=== PATIENT | male | born 1940 | race African-American/Black ===

== ENCOUNTER 2017-06-22 10:56 | Inpatient (IN) | payer MEDICARE, MEDICAID ==
--- NOTE | 2017-06-22 12:11 | ULT ---
LEFT LOWER EXTREMITY VENOUS ULTRASOUND: COMPARISON: None. HISTORY: Left lower extremity pain for 1 week. TECHNIQUE: Multiplanar, christian scale, and color Doppler images were obtained in a left lower extremity venous ultr asound. Spectral analysis of the Doppler waveforms was performed. FINDINGS: There is visible thrombus extending from the proximal superficial femoral vein down to the posterior tibial vein. There is minimal flow and no compression of the vessels. The common femoral vein shows no evidence of thrombus and shows normal flow. IMPRESSION: Extensive deep vein thrombosis in the left leg as above. POS: MAX
[2017-06-22] MEDS ORDERED: Enoxaparin Sodium 40 MG/0.4 ML SYRINGE ONE (12:18)
[2017-06-22] MEDS ORDERED: Enoxaparin Sodium 60 MG/0.6 ML SYRINGE ONE (12:19)
[2017-06-22 12:20] LABS: #Eosinphils 0.4 thou/uL (0.0-0.7); #Lymphocytes 2.3 thou/uL (1.20-3.40); #Monocytes 0.9 thou/uL (0.11-0.59); #Neutrophils 3.1 thou/uL (1.40-6.50); %Basophils 0.4 % (0.0-1.0); %Eosinophils 5.4 % (0.0-10.0); %Lymphocytes 34.9 % (21.0-51.0); %Monocytes 13.5 % (0.0-10.0); %Neutrophils 45.8 % (42.0-75.0); Hemoglobin 12.7 g/dL (14.0-18.0); Mean Corpuscular HGB CONC 31.3 g/dL (32.0-36.0); Mean Corpuscular Hemoglobin 26.8 pg (27.0-31.0); Mean Corpuscular Volume 85.8 fl (80.0-94.0); Mean Platelet Volume 7.5 fL (7.4-10.4); Platelet Count 204 thou/uL (130-400); RBC Distribution Width 13.1 % (11.5-14.5); Red Blood Cell (RBC) Count 4.74 mill/uL (4.70-6.10); White Blood Cell (WBC) Count 6.7 thou/uL (4.8-10.8)
[2017-06-22 12:44] LABS: ALT (SGPT) 9 U/L (8-55); AST (SGOT) 12 U/L (5-34); Albumin 3.4 g/dL (3.4-4.8); Alkaline Phosphatase 80 U/L (40-150); Anion Gap 10 mmol/L (10-20); BUN (Urea Nitrogen) 23 mg/dL (8.4-25.7); Bilirubin, Total 0.6 mg/dL (0.2-1.2); Calc. Creatinine Clearance 0 mL/min (70-130); Carbon Dioxide 27 mmol/L (23-31); Chloride 106 mmol/L (98-107); Estimated GFR-MDRD 66; Globulin 3.5 g/dL (2.4-3.5); Glucose 90 mg/dL (83-110); Potassium 3.6 mmol/L (3.5-5.1); Protein, Total 6.9 g/dL (5.8-8.1); Sodium 139 mmol/L (136-145)
[2017-06-22 12:46] LABS: CKMB 0.6 ng/mL (0-6.6); Troponin I 0.015 ng/mL (< 0.028)
--- NOTE | 2017-06-22 13:27 | CT ---
CT ARTERIOGRAM CHEST WITH IV CONTRAST AND 3D MIP IMAGING: HISTORY: Chest pain. Dyspnea. FINDINGS: Scattered small cylindrical filling defects are present within segmental and subsegmental arteries of each lobe. Contrast has not yet reached the aorta. Mild atelectasis is present at each lung base. IMPRESSION: Widely scattered small pulmonary emboli. Findings were called to Dr. Mccoy in the emergency department at 1321 hours. CODE CR POS: FRANCESCO
[2017-06-22 14:12] LABS: INR-International Normal Ratio 1.2; PTT 38.6 SEC (22.9-36.1); Prothrombin Time 15.7 SEC (12.0-14.7)
[2017-06-22 14:34] LABS: D-Dimer Test Greater than 20.00 *mcg/mL (0.27-0.43)
--- NOTE | 2017-06-22 15:28 | HP ---
PRIMARY CARE PHYSICIAN: Erin Morse M.D. REASON FOR ADMISSION: Deep vein thrombosis and pulmonary embolism. HISTORY OF PRESENT ILLNESS: A 76-year-old male with a history of hypertension as well as remote history of colon cancer, who presented to emergency room with complaint of left lower extremity calf tenderness, which was started on Friday, which was getting worse with walking. His intensity of pain is about 5/10 and pain was getting better when he was resting. He denied any chest pain, palpitation, dizziness, but he was feeling mild shortness of breath on exertion. He denies any syncope. He denies any hemoptysis. He denies any immobilization or trauma. He is not taking any medication which can cause hypercoagulable condition. He never had blood clot problem in the past. He denies any family history of blood clot as well. He denies any smoking. With this complaint, he presented to emergency room. In the emergency room, routine blood test showed D-dimer was significantly evaluated and that is why ultrasound was done, which was positive for deep vein thrombosis in left leg. CT angio was also positive for bilateral pulmonary embolism. In the emergency room, the patient has received Lovenox 1 mg/kg and IV fluid, and we are admitting this patient for further treatment. The patient denies any hematochezia, melena, UTI symptoms. He denies any headache. He denies any focal neurological symptoms. ALLERGIES: No known drug allergies. CURRENT HOME MEDICATIONS: The patient is taking Inderal 10 mg 3 times daily. REVIEW OF SYSTEMS: Please see my HPI for pertinent positives and negatives. All other review of systems reviewed and negative except as mentioned in the HPI : Constitutional: Weight loss or gain, ability to conduct usual activities. Skin: Rash, itching. Eyes: Double vision, pain. ENT/Mouth: Nose bleeding, neck stiffness, pain, tenderness. Cardiovascular: Palpitations, dyspnea on exertion, orthopnea. Respiratory: Shortness of breath, wheezing, cough, hemoptysis, fever or night sweats. Gastrointestinal: Poor appetite, abdominal pain, heartburn, nausea, vomiting, constipation, or diarrhea. Genitourinary: Urgency, frequency, dysuria, nocturia. Musculoskeletal: Pain, swelling. Neurologic/Psychiatric: Anxiety, depression. Allergy/Immunologic: Skin rash, bleeding tendency. PAST MEDICAL HISTORY: Hypertension, history of colon cancer treated with surgery. PAST SURGICAL HISTORY: Colon cancer surgery, right knee surgery. PAST PSYCHIATRIC HISTORY: Reviewed and negative. SOCIAL HISTORY: The patient lives at home by himself. No history of tobacco, alcohol or illicit drug abuse. He is retired. FAMILY HISTORY: No family history of blood clot disorder. No family history of coronary artery disease, stroke or cancer. EMERGENCY ROOM COURSE: The patient has received Lovenox 1 mg per kg as well as IV fluid. PHYSICAL EXAMINATION: VITAL SIGNS: On arrival, blood pressure 158/97, pulse 96, respiratory rate 18, temperature 98.4, saturation 98% on room air, weight 63.9 kilograms. GENERAL: The patient is currently alert, awake, no obvious acute distress. HEAD: Normocephalic, atraumatic. EYES: Pupils round, reactive to light. Extraocular muscles intact. ENT: Oropharynx within normal limits. Moist mucous membranes. No oral lesions. No pharyngeal erythema. No exudate. NECK: Supple, no JVD, no thyromegaly, no carotid bruit, no jugular venous distention. LUNGS: Clear to auscultation without any rhonchi or rales. CARDIAC: S1, S2 regular without any murmur. ABDOMEN: Soft and benign. Bowel sounds present. No organomegaly. No mass. No suprapubic tenderness. No peritoneal sign. No distention. BACK: Unremarkable. No CVA tenderness. EXTREMITIES: Upper extremity passive movement of all joints are normal. Lower extremities: Left calf tenderness. Otherwise, no pitting edema on both lower extremities. Good distal pulsation. SKIN: No skin rash. HEMATOLOGIC: No lymphadenopathy. PSYCHIATRIC: Normal affect. NEUROLOGIC: Nonfocal examination. The patient moves all 4 limbs. Plantar bilateral flexor. PSYCHIATRIC: Normal affect. SIGNIFICANT LABORATORY DATA: EKG showing sinus bradycardia with rate 48. Ultrasound of the lower extremity is positive for thrombus extending from the proximal superficial femoral vein down to the posterior tibial vein. CT angio positive for bilateral widely scattered small pulmonary emboli, mild atelectasis present at each of the lung base. CBC: WBC 6.7, hemoglobin 12.7, platelets 204. INR 1.2. D-dimer greater than 20. BMP: Sodium 139, potassium 3.6, chloride 106, carbon dioxide 27, anion gap 10, BUN 23, creatinine 1.28, glucose 90, calcium 9.0. LFT: AST 12, ALT 9, alkaline phosphatase 80, albumin 3.4. Homocystine 9.33. ASSESSMENT AND PLAN: 1. Extensive left lower extremity deep vein thrombosis. This patient has positive deep vein thrombosis from the proximal superficial femoral vein down to posterior tibial vein. The patient is also having pulmonary embolism. This patient will be treated with Lovenox 1 mg/kg subcu twice daily. I discussed with the patient about anticoagulation therapy about warfarin versus newer anticoagulant therapy. This patient will benefit from the OR anticoagulant therapy and he has agreed to continue upon discharge. We will control his pain with the pain medication as needed basis. 2. Bilateral pulmonary embolism. Currently, the patient is hemodynamically stable. His oxygen saturation is normal, most likely related with his deep vein thromboses, etiology uncertain at this point. We are going to send hypercoagulable workup. The patient will be treated with Lovenox 1 mg/kg and upon discharge, we will consider newer anticoagulant therapy Eliquis versus Xarelto. We will closely monitor for any hemodynamic compromise on telemetry floor. We will obtain echocardiography to assess ejection fraction and other structural abnormality. We will also continue O2. Rule out acute coronary syndrome with serial cardiac enzymes. 3. Hypertension. At this point, we will start a new antihypertensive medication with lisinopril 5 mg p.o. b.i.d. The patient has bradycardia and that is why we will hold on Inderal therapy for now. 4. History of colon cancer treated with surgery. Currently, the patient is in remission. The patient will need age appropriate cancer screening after discharge as well to rule out any occult etiology of deep venous thrombosis and pulmonary embolism. 5. Deep venous thrombosis prophylaxis. This patient is already on full dose of Lovenox therapy. 6. Gastrointestinal prophylaxis. Pepcid 20 mg p.o. b.i.d. 7. Code status: The patient is FULL CODE. The patient does not have any surrogate decision maker. 8. Sinus bradycardia: likely due to Inderal, will hold for now and change to lisinopril for hypertension. Disposition and plan based on clinical course. We are expecting patient's stay in the hospital more than 2 midnights. Plan of care discussed with the patient in detail. MTDD
[2017-06-22 15:50] LABS: Troponin I 0.013 ng/mL (< 0.028)
[2017-06-22] MEDS ORDERED: ISOVUE-370 76%-LOCM 1 ML ONE (17:01)
[2017-06-22] MEDS ORDERED: HYDROcodone/Acetaminophen 5/325 mg Tablet PO PRN ×3 (18:35→18:38)
[2017-06-22] MEDS ORDERED: Sodium Chloride 0.9% 1,000 ML IV SCH (18:35)
[2017-06-22] MEDS ORDERED: Ondansetron ODT 4 MG TAB SL PRN (18:35)
[2017-06-22] MEDS ORDERED: Acetaminophen 325 MG TAB PO PRN ×2 (18:35→18:38)
[2017-06-22] MEDS ORDERED: Ondansetron HCl/PF 4 MG/2 ML Vial IVP PRN ×2 (18:35→18:38)
[2017-06-22] MEDS ORDERED: Diabetic Tussin 200 MG/10 ML UDCUP PO PRN (18:38)
[2017-06-22] MEDS ORDERED: hydrALAZINE 20 MG/ML VIAL SLOW IVP PRN (18:38)
[2017-06-22] MEDS ORDERED: Zolpidem Tartrate 5 MG TAB PO PRN (18:38)
[2017-06-22] MEDS ORDERED: Eucerin (Mineral Oil/Petrolatum,White) 30 gm Jar TOP PRN (18:38)
[2017-06-22] MEDS ORDERED: Sodium Chloride 0.65% Nasal 44 ML BOT EA NARE PRN (18:38)
[2017-06-22] MEDS ORDERED: Ondansetron ODT 4 MG TAB PO PRN (18:38)
[2017-06-22] MEDS ORDERED: Senokot 8.6 MG TAB PO PRN (18:38)
[2017-06-22] MEDS ORDERED: Artificial Tear Sol 15 ML BOT EA EYE PRN (18:38)
[2017-06-22] MEDS ORDERED: Loperamide HCl 2 MG CAP PO PRN (18:38)
[2017-06-22] MEDS ORDERED: Milk Of Magnesia 30 ML UDCUP PO PRN (18:38)
[2017-06-22] MEDS ORDERED: Mag-Al 1200 mg/1200 mg/30 ML UDCUP PO PRN (18:38)
[2017-06-22] MEDS ORDERED: Loratadine 10 MG TAB PO PRN (18:38)
[2017-06-22] MEDS ORDERED: Chloraseptic Spray 180 ml Bottle PO PRN (18:38)
[2017-06-22 18:42] LABS: Troponin I 0.018 ng/mL (< 0.028)
[2017-06-22] MEDS: Enoxaparin Sodium 60 MG/0.6 ML SYRINGE SC SCH (19:52)
[2017-06-22] MEDS: Lisinopril 5 MG TAB PO SCH (19:53)
[2017-06-22] MEDS: Famotidine 20 MG TAB PO SCH (19:54)
[2017-06-22 20:02] VITALS: BMI 22.7
[2017-06-23 05:15] LABS: INR-International Normal Ratio 1.2; Prothrombin Time 15.1 SEC (12.0-14.7)
[2017-06-23 05:19] LABS: #Basophils 0.1 thou/uL (0.0-0.2); #Eosinphils 0.5 thou/uL (0.0-0.7); #Lymphocytes 2.8 thou/uL (1.20-3.40); #Monocytes 0.8 thou/uL (0.11-0.59); #Neutrophils 2.1 thou/uL (1.40-6.50); %Eosinophils 7.8 % (0.0-10.0); %Lymphocytes 44.3 % (21.0-51.0); %Monocytes 13.4 % (0.0-10.0); %Neutrophils 33.5 % (42.0-75.0); Hemoglobin 11.2 g/dL (14.0-18.0); Mean Corpuscular HGB CONC 32.1 g/dL (32.0-36.0); Mean Corpuscular Hemoglobin 27.8 pg (27.0-31.0); Mean Corpuscular Volume 86.5 fl (80.0-94.0); Mean Platelet Volume 7.5 fL (7.4-10.4); Platelet Count 206 thou/uL (130-400); RBC Distribution Width 13.1 % (11.5-14.5); Red Blood Cell (RBC) Count 4.03 mill/uL (4.70-6.10); White Blood Cell (WBC) Count 6.2 thou/uL (4.8-10.8)
[2017-06-23 05:44] LABS: Anion Gap 12 mmol/L (10-20); BUN (Urea Nitrogen) 19 mg/dL (8.4-25.7); Calc. Creatinine Clearance 48 mL/min (70-130); Calcium 8.3 mg/dL (7.8-10.44); Carbon Dioxide 23 mmol/L (23-31); Chloride 109 mmol/L (98-107); Estimated GFR-MDRD 73; Glucose 87 mg/dL (83-110); Sodium 140 mmol/L (136-145)
[2017-06-23] MEDS: Lisinopril 5 MG TAB PO SCH ×2 (09:00→21:34)
[2017-06-23] MEDS: Enoxaparin Sodium 60 MG/0.6 ML SYRINGE SC SCH ×2 (09:01→21:33)
[2017-06-23] MEDS: Famotidine 20 MG TAB PO SCH ×2 (09:01→21:35)
--- NOTE | 2017-06-23 10:41 | PDOC.PN ---
- Subjective Encounter Start Date: 06/23/17 Encounter Start Time: 07:00 Patient seen and examined. No new complaints. No overnight events - Objective Resuscitation Status: Resuscitation Status FULL:Full Resuscitation MAR Reviewed: Yes Vital Signs & Weight: Vital Signs (12 hours) Temp Pulse Resp BP Pulse Ox 06/23/17 03:20 98.4 F 50 L 16 140/75 95 06/23/17 03:10 99 F 52 L 16 146/71 H 95 06/22/17 23:56 99.4 F 60 16 158/77 H 95 Weight Weight 141 lb I&O: 06/22/17 06/23/17 06/24/17 06:59 06:59 06:59 Intake Total 1040 Output Total 700 Balance 340 Result Diagrams: 06/23/17 04:16 06/23/17 04:16 Phys Exam - Physical Examination Constitutional: NAD HEENT: PERRLA, moist MMs, sclera anicteric Neck: no JVD, supple Respiratory: no wheezing, no rales, no rhonchi Cardiovascular: RRR, no significant murmur, no rub Gastrointestinal: soft, non-tender, no distention Musculoskeletal: no edema, pulses present Neurological: non-focal, normal sensation, moves all 4 limbs Psychiatric: normal affect, A&O x 3 Skin: no rash, normal turgor Dx/Plan (1) Pulmonary embolism Code(s): I26.99 - OTHER PULMONARY EMBOLISM WITHOUT ACUTE COR PULMONALE Status : Acute Qualifiers: Chronicity: acute (2) DVT of leg (deep venous thrombosis) Code(s): I82.409 - ACUTE EMBOLISM AND THOMBOS UNSP DEEP VN UNSP LOWER EXTREMITY Status: Acute Qualifiers: Chronicity: acute Laterality: left (3) Sinus bradycardia Code(s): R00.1 - BRADYCARDIA, UNSPECIFIED Status: Acute (4) H/O malignant neoplasm of colon Code(s): Z85.038 - PERSONAL HISTORY OF MALIGNANT NEOPLASM OF LARGE INTESTINE Status: Chronic (5) Hypertension Code(s): I10 - ESSENTIAL (PRIMARY) HYPERTENSION Status: Chronic - Plan cont current plan of care * continue lovenox for anticoagulation * follow up on hypercoagulable work up * medication reviewed as below * symptomatic treatment * on discharge will consider elliquis * pain controlled. Review of Systems - Review of Systems ENT: negative: Ear Pain, Ear Discharge, Nose Pain, Nose Discharge, Nose Congestion, Mouth Pain, Mouth Swelling, Throat Pain, Throat Swelling, Other Respiratory: negative: Cough, Dry, Shortness of Breath, Hemoptysis, SOB with Excertion, Pleuritic Pain, Sputum, Wheezing Cardiovascular: negative: chest pain, palpitations, orthopnea, paroxysmal nocturnal dyspnea, edema, light headedness, other Gastrointestinal: negative: Nausea, Vomiting, Abdominal Pain, Diarrhea, Constipation, Melena, Hematochezia, Other Genitourinary: negative: Dysuria, Frequency, Incontinence, Hematuria, Retention , Other Musculoskeletal: negative: Neck Pain, Shoulder Pain, Arm Pain, Back Pain, Hand Pain, Leg Pain, Foot Pain, Other Skin: negative: Rash, Lesions, [place], Bruising, Other - Medications/Allergies Allergies/Adverse Reactions: Allergies Allergy/AdvReac Type Severity Reaction Status Date / Time No Known Allergies Allergy Verified 06/22/17 20:10 Medications: Current Medications Acetaminophen (Tylenol) 650 mg PO Q4H PRN PRN Reason: Headache/Fever or Pain Last Admin: 06/23/17 09:00 Dose: 650 mg Hydrocodone Bitart/Acetaminophen ([place] 5/325) 1 tab PO Q4H PRN PRN Reason: Moderate Pain (4-6) Al Hydroxide/Mg Hydroxide (Maalox) 30 ml PO Q6H PRN PRN Reason: Heartburn or Indigestion Artificial Tears (Tears Renewed 15ml Bottle) 0 drop EA EYE PRN PRN PRN Reason: Dry Eyes Enoxaparin Sodium (Lovenox) 60 mg SC 0900,2100 [facility] Last Admin: 06/23/17 09:01 Dose: 60 mg Famotidine (Pepcid) 20 mg PO BID [facility] Last Admin: 06/23/17 09:01 Dose: 20 mg Guaifenesin (Robitussin Sf) 200 mg PO Q4H PRN PRN Reason: Cough Hydralazine HCl (Apresoline) 10 mg SLOW IVP Q4H PRN PRN Reason: Systolic BP > 180 Lisinopril (Zestril) 5 mg PO BID [facility] Last Admin: 06/23/17 09:00 Dose: 5 mg Loperamide HCl (Imodium) 2 mg PO PRN PRN PRN Reason: Diarrhea/Loose Stools Loratadine (Claritin) 10 mg PO DAILYPRN PRN PRN Reason: Sinus Symptoms Magnesium Hydroxide (Milk Of Magnesium) 30 ml PO DAILYPRN PRN PRN Reason: Constipation Mineral Oil/White Petrolatum (Eucerin Cream) 0 gm TOP BIDPRN PRN PRN Reason: Dry Skin Ondansetron HCl (Zofran Odt) 4 mg PO Q6H PRN PRN Reason: Nausea/Vomiting Ondansetron HCl (Zofran) 4 mg IVP Q6H PRN PRN Reason: Nausea/Vomiting Phenol (Chloraseptic [place] 180 Ml Bot) 0 ml PO PRN PRN PRN Reason: Sore Throat Senna (Senokot) 2 tab PO HSPRN PRN PRN Reason: Constipation Sodium Chloride ([place] Nasal [place] 0.65%) 0 ml EA NARE QIDPRN PRN PRN Reason: Nasal Congestion Zolpidem Tartrate (Ambien) 5 mg PO HSPRN PRN PRN Reason: Insomnia
[2017-06-23 22:27] LABS: Hemoglobin 11.3 g/dL (14.0-18.0); Platelet Count 226 thou/uL (130-400)
[2017-06-24 05:30] LABS: INR-International Normal Ratio 1.2
--- NOTE | 2017-06-24 09:05 | PDOC.PN ---
- Subjective Encounter Start Date: 06/24/17 Encounter Start Time: 09:00 Subjective: f/u for LLE extensive DVT and bilat PE's on Lovenox. States some SOB -: with ambulating or minor activity. Decreases swelling in LLE. No CP. - Objective Resuscitation Status: Resuscitation Status FULL:Full Resuscitation MAR Reviewed: Yes Vital Signs & Weight: Vital Signs (12 hours) Temp Pulse Resp BP BP Pulse Ox 06/24/17 07:35 99.2 F 54 L 20 157/78 H 97 06/24/17 04:00 98.8 F 49 L 18 153/71 H 95 06/23/17 21:34 59 L 148/78 H Weight Weight 135 lb 9.6 oz I&O: 06/23/17 06/24/17 06/25/17 06:59 06:59 06:59 Intake Total 1040 240 Output Total 700 Balance 340 240 Result Diagrams: 06/23/17 22:16 06/23/17 22:16 Additional Labs: Microbiology 06/22/17 17:50 Stool Stool Occult Blood (RAMIREZ) - Final Laboratory Tests 06/22/17 06/23/17 06/24/17 12:10 04:16 04:08 Hgb 12.7 L 11.2 L PT 15.0 H INR 1.2 Radiology Reviewed by me: Yes (2D echo - EF 60%, mild MR) EKG Reviewed by me: Yes (Tele - Sinus bradycardia) Phys Exam - Physical Examination Constitutional: NAD HEENT: PERRLA, oral pharynx no lesions Neck: no JVD, supple Respiratory: no wheezing, clear to auscultation bilateral Cardiovascular: RRR Gastrointestinal: soft, non-tender, no distention, positive bowel sounds mild LLE edema Musculoskeletal: pulses present Neurological: normal sensation, moves all 4 limbs Psychiatric: A&O x 3 Skin: normal turgor, cap refill <2 seconds Dx/Plan (1) DVT of leg (deep venous thrombosis) Code(s): I82.409 - ACUTE EMBOLISM AND THOMBOS UNSP DEEP VN UNSP LOWER EXTREMITY Status: Acute Qualifiers: Chronicity: acute Laterality: left Comment: Extensive thrombosis of superficial femoral to post tibial vein, continue Lovenox, plan to transition to Xarelto in 24h (2) Pulmonary embolism Code(s): I26.99 - OTHER PULMONARY EMBOLISM WITHOUT ACUTE COR PULMONALE Status : Acute Qualifiers: Chronicity: acute Comment: Bilateral involvement, transition to Xarelto in 24h (3) Sinus bradycardia Code(s): R00.1 - BRADYCARDIA, UNSPECIFIED Status: Chronic Comment: Asymptomatic (4) H/O malignant neoplasm of colon Code(s): Z85.038 - PERSONAL HISTORY OF MALIGNANT NEOPLASM OF LARGE INTESTINE Status: Chronic Comment: Plan for outpt colonoscopy (5) Hypertension Code(s): I10 - ESSENTIAL (PRIMARY) HYPERTENSION Status: Chronic Qualifiers: Hypertension type: essential hypertension Qualified Code(s): I10 - Essential (primary) hypertension Comment: Continue Lisinopril 5mg BID, hold beta amina due to bradycardia. - Plan plan discussed w/ family, out of bed/ambulate, DVT proph w/SCDs Stable currently -: Continue Lovenox 60mg sc q12h another 24h -: Plan to start Xarelto 15mg BID in am -: OOB/ambulate -: AM lab: H/H * Likely home in am
[2017-06-24] MEDS: Famotidine 20 MG TAB PO SCH ×2 (09:45→22:58)
[2017-06-24] MEDS: Lisinopril 5 MG TAB PO SCH ×2 (09:45→22:57)
[2017-06-24] MEDS: Enoxaparin Sodium 60 MG/0.6 ML SYRINGE SC SCH ×2 (09:46→22:57)
[2017-06-25 05:32] LABS: Hemoglobin 11.5 g/dL (14.0-18.0); Platelet Count 251 thou/uL (130-400)
[2017-06-25 05:54] LABS: INR-International Normal Ratio 1.1; Prothrombin Time 14.8 SEC (12.0-14.7)
[2017-06-25] MEDS ORDERED: Rivaroxaban 15 MG TAB PO SCH ×2 (09:00→21:00)
[2017-06-25] MEDS: Lisinopril 5 MG TAB PO SCH (09:25)
[2017-06-25] MEDS: Famotidine 20 MG TAB PO SCH (09:26)
[2017-06-25 12:11] VITALS: BP 134/68; TEMP 99.4
--- NOTE | 2017-06-25 12:57 | DIS ---
DISCHARGE DIAGNOSES: 1. Acute left lower extremity deep venous thrombosis from the superficial femoral to the posterior t ibial vein. 2. Bilateral pulmonary emboli. 3. Sinus bradycardia, iatrogenic, improved. 4. Hypertension, stable. 5. History of colon adenocarcinoma, status post resection. CONSULTATIONS: None. PERTINENT LAB AND X-RAY FINDINGS: Creatinine ranged between 1.12-1.28, estimated GFR ranged between 66-77. Troponin I negative x3. CBC showed a hemoglobin ranging between 11.3-12.7. PT 14.8, INR 1.1 on 06/25/2017. Stool Hemoccult 06/22/2017 negative. Left lower extremity venous Doppler study date d 06/22/2017 showed extensive deep venous thrombosis from the superficial femoral to the posterior ti bial vein. CT angiogram of the chest dated 06/22/2017 showed widely scattered small pulmonary emboli . A 2D transthoracic echocardiogram dated 06/23/2017 showed ejection fraction of 60-65%. Mild to mo derate mitral valve regurgitation. HOSPITAL COURSE: The patient was admitted to the telemetry unit after initially presenting with left lower extremity swelling and tenderness with confirmation of left lower extremity DVT by venous Dopp ler study. The patient was initiated on Lovenox throughout the hospital course and was noted by CT a ngiogram of the chest with bilateral pulmonary emboli. The patient initially was placed on oxygen adams pplementation transitioning to room air, tolerating without difficulty prior to discharge. No specif ic etiology identified to explain current presentation of thrombosis. The patient with a known histo ry of prior malignancy of the colon, status post resection. Current recommendations are for outpatie nt colonoscopy exam. The patient was also noted with sinus bradycardia, discontinued on propranolol and initiated on lisinopril for blood pressure control. The patient may need additional titration of his antihypertensive regimen on an ongoing basis after discharge. Overall, the patient did remain c linically stable throughout the hospital course. Current recommendations are to continue anticoagula tion for 6 months. The patient ready for discharge on 06/25/2017. DISCHARGE MEDICATIONS: 1. Lisinopril 5 mg 1 tab p.o. b.i.d. 2. Xarelto 15 mg p.o. b.i.d. x21 days, followed by 20 mg p.o. daily to complete a 6 month course of therapy. FOLLOWUP: The patient may follow up with his primary care provider, Dr. Erin Morse within 7 days. CONDITION ON DISCHARGE: Stable. ACTIVITY: Ad diana. DIET: Regular. SPECIAL INSTRUCTIONS: Recommend outpatient GI followup for colonoscopy exam. CODE STATUS: Full. DISPOSITION: Home on 06/25/2017. Total time preparing and coordinating discharge is 35 minutes.
[2017-06-26 11:22] LABS: Factor VIII Test 233.4 % ACTIVE (56-157)
[2017-06-26 11:23] LABS: Protein C Activity 83 % (78-152)
--- NOTE | 2017-06-28 18:41 | EKG ---
Test Reason : Blood Pressure : / mmHG Vent. Rate : 048 BPM Atrial Rate : 048 BPM P-R Int : 164 ms QRS Dur : 072 ms QT Int : 434 ms P-R-T Axes : 049 009 046 degrees QTc Int : 387 ms Sinus bradycardia Otherwise normal ECG Confirmed by LAZARUS CARRERO MD ([id number]), pictures editor ARACELI REECE ([id number]) on 06/28/2017 6:40:33 PM Referred By: Confirmed By:LAZARUS CARRERO MD
[2017-06-30 16:12] LABS: Hexagonal Phospholipid Neut 4 sec (.)
== END 2017-06-25 13:19 | disposition home or self-care (01) | DRG 299 ==
LOC: ERS 10:56 → 2NO 13:39
PROVIDERS: ADMIT Internal Medicine; ATTEND Internal Medicine
DX: I82.442 Acute embolism and thrombosis of left tibial vein (principal); I26.99 Other pulmonary embolism without acute cor pulmonale; I10 Essential (primary) hypertension; Z85.038 Personal history of other malignant neoplasm of large intestine; T44.7X5A Adverse effect of beta-adrenoreceptor antagonists, initial encounter; R00.1 Bradycardia, unspecified
CPT/HCPCS: 36415; 71275; 80048; 80053; 81240; 82274; 82553; 82565; 83090; 84484; 85014; 85018; 85025; 85049; 85240; 85300; 85303; 85305; 85307; 85379; 85598; 85610; 85730; 93005; 93306; 94760; 96360; 96372; J1650

== ENCOUNTER 2017-07-16 20:20 | Emergency (ER) | payer MEDICARE, MEDICAID ==
[2017-07-16 21:02] LABS: #Basophils 0.1 thou/uL (0.0-0.2); #Eosinphils 0.5 thou/uL (0.0-0.7); #Lymphocytes 2.6 thou/uL (1.20-3.40); #Monocytes 0.8 thou/uL (0.11-0.59); #Neutrophils 2.2 thou/uL (1.40-6.50); %Basophils 0.8 % (0.0-1.0); %Eosinophils 7.9 % (0.0-10.0); %Lymphocytes 41.9 % (21.0-51.0); %Monocytes 13.4 % (0.0-10.0); %Neutrophils 35.9 % (42.0-75.0); Hemoglobin 12.7 g/dL (14.0-18.0); Mean Corpuscular HGB CONC 32.2 g/dL (32.0-36.0); Mean Corpuscular Volume 86.8 fl (80.0-94.0); Mean Platelet Volume 7.4 fL (7.4-10.4); Platelet Count 245 thou/uL (130-400); RBC Distribution Width 13.7 % (11.5-14.5); Red Blood Cell (RBC) Count 4.52 mill/uL (4.70-6.10); White Blood Cell (WBC) Count 6.2 thou/uL (4.8-10.8)
[2017-07-16 21:10] LABS: Bilirubin Large (Negative); Blood, Urine Large (Negative); Clarity TURBID (Clear); Glucose, Urine (Dipstick) Negative (Negative); Leukocyte Moderate (Negative); Nitrite Positive (Negative); Protein, Urine (Dipstick) 300 mg/dL (Neg-Trace); Specific Gravity, Urine 1.025 (1.002-1.036); pH, Urine 5.5 (5.0-9.0)
[2017-07-16 21:10] LABS: INR-International Normal Ratio 2.8; Prothrombin Time 30.4 SEC (12.0-14.7)
[2017-07-16 21:11] LABS: PTT 43.8 SEC (22.9-36.1)
[2017-07-16 21:14] LABS: Bacteria/HPF None Seen HPF (None Seen); Hyaline Casts/LPF 4-6 HYALINE CAST LPF (0-3 Hyaline); Pathc Cast-AUWi Flag 1.06 (0-2.49); RBC/HPF GREATER THAN 50-TNTC HPF (0-3); WBC/HPF 21-50 HPF (0-3)
[2017-07-16] MEDS ORDERED: cefTRIAXone\\ROCEPHIN 2 GM in Sodium Chloride 0.9% 100 ML IVPB SCH (21:45)
[2017-07-16 22:24] LABS: ALT (SGPT) 7 U/L (8-55); AST (SGOT) 12 U/L (5-34); Albumin 3.7 g/dL (3.4-4.8); Alkaline Phosphatase 89 U/L (40-150); Anion Gap 11 mmol/L (10-20); BUN (Urea Nitrogen) 22 mg/dL (8.4-25.7); Bilirubin, Total 0.3 mg/dL (0.2-1.2); Calc. Creatinine Clearance 0 mL/min (70-130); Calcium 9.3 mg/dL (7.8-10.44); Carbon Dioxide 28 mmol/L (23-31); Chloride 106 mmol/L (98-107); Estimated GFR-MDRD 56; Globulin 3.8 g/dL (2.4-3.5); Glucose 89 mg/dL (83-110); Potassium 4.1 mmol/L (3.5-5.1); Protein, Total 7.5 g/dL (5.8-8.1); Sodium 141 mmol/L (136-145)
== END 2017-07-16 23:31 | disposition home or self-care (01) ==
LOC: ERS 20:20
DX: R31.0 Gross hematuria (principal); I10 Essential (primary) hypertension
CPT/HCPCS: 36415; 80053; 81003; 81015; 85025; 85610; 85730; 87086; 96365; J0696; J7050

== ENCOUNTER 2020-08-14 17:05 | Inpatient (IN) | payer MEDICARE, MEDICAID ==
[2020-08-14 17:43] LABS: #Basophils 0.1 thou/uL (0.0-0.2); #Eosinphils 0.3 thou/uL (0.0-0.7); #Lymphocytes 2.1 thou/uL (1.20-3.40); #Monocytes 0.6 thou/uL (0.11-0.59); #Neutrophils 1.8 thou/uL (1.40-6.50); %Basophils 1.1 % (0.0-1.0); %Eosinophils 6.9 % (0.0-10.0); %Lymphocytes 42.7 % (21.0-51.0); %Monocytes 12.8 % (0.0-10.0); %Neutrophils 36.5 % (42.0-75.0); Hemoglobin 13.7 g/dL (14.0-18.0); Mean Corpuscular Hemoglobin 28.7 pg (27.0-31.0); Mean Corpuscular Volume 87.1 fL (78.0-98.0); Mean Platelet Volume 7.9 fL (7.4-10.4); Platelet Count 233 thou/uL (130-400); RBC Distribution Width 13.3 % (11.5-14.5); Red Blood Cell (RBC) Count 4.77 mill/uL (4.70-6.10)
[2020-08-14 17:43] LABS: Bacteria/HPF None Seen HPF (None Seen); Bilirubin Negative (Negative); Blood, Urine Trace (Negative); Clarity Clear (Clear); Glucose, Urine (Dipstick) Normal (Negative); Ketone, Urine Negative (Negative); Leukocyte Negative Leu/uL (Negative); Nitrite Negative (Negative); Protein, Urine (Dipstick) 20 mg/dL (Neg-Trace); RBC/HPF 0-3 HPF (0-3); Specific Gravity, Urine 1.028 (1.002-1.036); Squamous Epithelial 0-3 HPF (0-3); Urobilinogen Normal mg/dL (Less than 2); WBC/HPF 0-3 HPF (0-3); pH, Urine 5.5 (5.0-9.0)
[2020-08-14 18:06] LABS: ALT (SGPT) 11 U/L (8-55); AST (SGOT) 14 U/L (5-34); Albumin 4.2 g/dL (3.4-4.8); Alkaline Phosphatase 87 U/L (40-110); Anion Gap 13 mmol/L (10-20); BUN (Urea Nitrogen) 21 mg/dL (8.4-25.7); Bilirubin, Total 0.4 mg/dL (0.2-1.2); CK (CPK) 97 U/L (30-200); Calc. Creatinine Clearance 0 mL/min (70-130); Calcium 9.4 mg/dL (7.8-10.44); Carbon Dioxide 26 mmol/L (23-31); Chloride 105 mmol/L (98-107); Globulin 3.7 g/dL (2.4-3.5); Glucose 99 mg/dL (83-110); Lipase 28 U/L (8-78); Potassium 4.1 mmol/L (3.5-5.1); Protein, Total 7.9 g/dL (5.8-8.1); Sodium 140 mmol/L (136-145)
[2020-08-14] MEDS ORDERED: Ondansetron PF 4 MG/2 ML Vial IVP PRN (21:00)
[2020-08-14] MEDS ORDERED: Ondansetron ODT 4 MG TAB SL PRN (21:00)
[2020-08-14] MEDS ORDERED: Sodium Chloride 0.9% 1,000 ML IV SCH (21:00)
[2020-08-15 02:03] VITALS: BMI 23.2
[2020-08-15 04:49] LABS: SARS-CoV-2 PCR by NAA Not Detected (NotDetected)
[2020-08-15 05:22] LABS: #Eosinphils 0.5 thou/uL (0.0-0.7); #Lymphocytes 2.3 thou/uL (1.20-3.40); #Monocytes 0.7 thou/uL (0.11-0.59); #Neutrophils 1.8 thou/uL (1.40-6.50); %Basophils 0.8 % (0.0-1.0); %Eosinophils 9.5 % (0.0-10.0); %Lymphocytes 42.6 % (21.0-51.0); %Monocytes 12.9 % (0.0-10.0); %Neutrophils 34.1 % (42.0-75.0); Hemoglobin 11.6 g/dL (14.0-18.0); Mean Corpuscular HGB CONC 32.6 g/dL (32.0-36.0); Mean Corpuscular Hemoglobin 28.9 pg (27.0-31.0); Mean Corpuscular Volume 88.7 fL (78.0-98.0); Mean Platelet Volume 8.1 fL (7.4-10.4); Platelet Count 205 thou/uL (130-400); RBC Distribution Width 13.3 % (11.5-14.5); Red Blood Cell (RBC) Count 4.02 mill/uL (4.70-6.10); White Blood Cell (WBC) Count 5.4 thou/uL (4.8-10.8)
[2020-08-15 05:23] LABS: Anion Gap 10 mmol/L (10-20); BUN (Urea Nitrogen) 20 mg/dL (8.4-25.7); Calc. Creatinine Clearance 43 mL/min (70-130); Calcium 8.6 mg/dL (7.8-10.44); Carbon Dioxide 27 mmol/L (23-31); Chloride 108 mmol/L (98-107); Glucose 118 mg/dL (83-110); Potassium 3.7 mmol/L (3.5-5.1); Sodium 141 mmol/L (136-145)
[2020-08-15] MEDS ORDERED: hydrALAZINE 20 MG/ML VIAL SLOW IVP PRN (06:10)
[2020-08-15] MEDS ORDERED: hydrALAZINE 20 MG/ML VIAL SLOW IVP SCH (06:15)
[2020-08-15] MEDS ORDERED: Rivaroxaban 15 MG TAB PO SCH (09:00)
[2020-08-15] MEDS ORDERED: FLU VACC QS2020-21(65YR UP)/PF 240 MCG/0.7 ML SYRINGE IM ONE (09:00)
[2020-08-15] MEDS: Lisinopril 5 MG TAB PO SCH ×2 (09:46→20:58)
[2020-08-15] MEDS: Acetaminophen 325 MG TAB PO PRN (09:47)
[2020-08-16 05:42] LABS: #Basophils 0.1 thou/uL (0.0-0.2); #Eosinphils 0.5 thou/uL (0.0-0.7); #Lymphocytes 2.3 thou/uL (1.20-3.40); #Monocytes 0.7 thou/uL (0.11-0.59); #Neutrophils 2.1 thou/uL (1.40-6.50); %Basophils 1.5 % (0.0-1.0); %Eosinophils 9.3 % (0.0-10.0); %Lymphocytes 40.7 % (21.0-51.0); %Monocytes 12.2 % (0.0-10.0); %Neutrophils 36.4 % (42.0-75.0); Hemoglobin 12.3 g/dL (14.0-18.0); Mean Corpuscular Volume 87.9 fL (78.0-98.0); Platelet Count 208 thou/uL (130-400); RBC Distribution Width 13.4 % (11.5-14.5); Red Blood Cell (RBC) Count 4.25 mill/uL (4.70-6.10); White Blood Cell (WBC) Count 5.7 thou/uL (4.8-10.8)
[2020-08-16 05:56] LABS: Anion Gap 13 mmol/L (10-20); BUN (Urea Nitrogen) 20 mg/dL (8.4-25.7); Calc. Creatinine Clearance 43 mL/min (70-130); Calcium 8.8 mg/dL (7.8-10.44); Carbon Dioxide 25 mmol/L (23-31); Chloride 106 mmol/L (98-107); Glucose 86 mg/dL (83-110); Magnesium 1.8 mg/dL (1.6-2.6); Potassium 4.2 mmol/L (3.5-5.1); Sodium 140 mmol/L (136-145)
[2020-08-16] MEDS: Losartan 25 MG TAB PO SCH (08:26)
[2020-08-17 04:33] LABS: #Basophils 0.1 thou/uL (0.0-0.2); #Eosinphils 0.5 thou/uL (0.0-0.7); #Lymphocytes 2.3 thou/uL (1.20-3.40); #Monocytes 0.7 thou/uL (0.11-0.59); #Neutrophils 2.1 thou/uL (1.40-6.50); %Basophils 1.6 % (0.0-1.0); %Lymphocytes 40.3 % (21.0-51.0); %Monocytes 12.8 % (0.0-10.0); %Neutrophils 36.3 % (42.0-75.0); Hemoglobin 12.3 g/dL (14.0-18.0); Mean Corpuscular HGB CONC 32.9 g/dL (32.0-36.0); Mean Corpuscular Hemoglobin 28.7 pg (27.0-31.0); Mean Corpuscular Volume 87.4 fL (78.0-98.0); Platelet Count 200 thou/uL (130-400); RBC Distribution Width 13.4 % (11.5-14.5); Red Blood Cell (RBC) Count 4.28 mill/uL (4.70-6.10); White Blood Cell (WBC) Count 5.7 thou/uL (4.8-10.8)
[2020-08-17 04:51] LABS: Anion Gap 12 mmol/L (10-20); BUN (Urea Nitrogen) 21 mg/dL (8.4-25.7); Calc. Creatinine Clearance 43 mL/min (70-130); Calcium 9.1 mg/dL (7.8-10.44); Carbon Dioxide 26 mmol/L (23-31); Chloride 104 mmol/L (98-107); Glucose 88 mg/dL (83-110); Magnesium 1.9 mg/dL (1.6-2.6); Potassium 3.9 mmol/L (3.5-5.1); Sodium 138 mmol/L (136-145)
[2020-08-17] MEDS: Losartan 25 MG TAB PO SCH (08:23)
[2020-08-17] MEDS ORDERED: Benzonatate 100 MG CAP PO PRN (15:20)
[2020-08-17] MEDS: Acetaminophen 325 MG TAB PO PRN (16:12)
[2020-08-18] MEDS ORDERED: Sodium Chloride 0.9% 1,000 ML IV SCH (06:00)
[2020-08-18] MEDS ORDERED: Lidocaine 1% (PF) 30 ML VIAL ONE ×2 (06:52→07:45)
[2020-08-18] MEDS ORDERED: CEFAZOLIN 1 GM VIAL ONE (06:53)
[2020-08-18] MEDS ORDERED: Gentamicin 80 MG/2 ML VIAL ONE (06:53)
[2020-08-18] MEDS ORDERED: CEFAZOLIN 2 GM in Premix Bag 1 BAG IVPB SCH (07:00)
[2020-08-18] MEDS ORDERED: Fentanyl 100 MCG/2 ML VIAL ONE (07:26)
[2020-08-18] MEDS ORDERED: Midazolam HCl 2 mg/2 ml Vial ONE (07:26)
[2020-08-18] MEDS ORDERED: Acetaminophen/Codeine 30-300mg Tablet PO PRN ×2 (08:59)
[2020-08-18] MEDS: Cephalexin 250 MG CAP PO SCH ×2 (09:26→13:59)
[2020-08-18] MEDS: Acetaminophen 325 MG TAB PO PRN (13:59)
[2020-08-18 17:19] VITALS: BP 143/81; TEMP 99.3
[2020-08-18] MEDS ORDERED: Ibuprofen 200 MG TAB PO PRN (17:41)
== END 2020-08-18 19:10 | disposition home health service (06) | DRG 244 ==
LOC: ERS 17:05 → 2NO 19:28
PROVIDERS: ADMIT Student in an Organized Health Care Education/Training Program; ATTEND Internal Medicine
PROC: 0JH606Z Insertion of Pacemaker, Dual Chamber into Chest Subcutaneous Tissue and Fascia, Open Approach (ICD-10-PCS; principal; 2020-08-18)
PROC: 02H63JZ Insertion of Pacemaker Lead into Right Atrium, Percutaneous Approach (ICD-10-PCS; 2020-08-18)
PROC: 02HK3JZ Insertion of Pacemaker Lead into Right Ventricle, Percutaneous Approach (ICD-10-PCS; 2020-08-18)
DX: R00.1 Bradycardia, unspecified (principal); I10 Essential (primary) hypertension; C61 Malignant neoplasm of prostate; Z20.822 Contact with and (suspected) exposure to COVID-19; D64.9 Anemia, unspecified; I08.1 Rheumatic disorders of both mitral and tricuspid valves; I77.810 Thoracic aortic ectasia; Z85.038 Personal history of other malignant neoplasm of large intestine; Z79.01 Long term (current) use of anticoagulants; Z79.899 Other long term (current) drug therapy; Z86.711 Personal history of pulmonary embolism; Z86.718 Personal history of other venous thrombosis and embolism; Z87.891 Personal history of nicotine dependence; I16.0 Hypertensive urgency
CPT/HCPCS: 33208; 36415; 71045; 75820; 80048; 80053; 81003; 81015; 82550; 83690; 83735; 83880; 84484; 85025; 87635; 93005; 93306; 99152; 99153; C1785; C1898; J0360; J0690; J1580; J2001; J2250; J3010; U0003; U0005

== ENCOUNTER 2020-09-07 09:39 | Inpatient (IN) | payer MEDICARE, MEDICAID ==
[2020-09-07 10:14] LABS: #Eosinphils 0.3 thou/uL (0.0-0.7); #Lymphocytes 1.4 thou/uL (1.20-3.40); #Monocytes 0.5 thou/uL (0.11-0.59); #Neutrophils 2.7 thou/uL (1.40-6.50); %Basophils 0.7 % (0.0-1.0); %Eosinophils 6.7 % (0.0-10.0); %Lymphocytes 27.7 % (21.0-51.0); %Monocytes 10.6 % (0.0-10.0); %Neutrophils 54.4 % (42.0-75.0); Hemoglobin 12.4 g/dL (14.0-18.0); Mean Corpuscular HGB CONC 32.6 g/dL (32.0-36.0); Mean Corpuscular Hemoglobin 28.4 pg (27.0-31.0); Mean Platelet Volume 7.6 fL (7.4-10.4); Platelet Count 181 thou/uL (130-400); RBC Distribution Width 12.7 % (11.5-14.5); Red Blood Cell (RBC) Count 4.37 mill/uL (4.70-6.10)
[2020-09-07 10:39] LABS: ALT (SGPT) 13 U/L (8-55); AST (SGOT) 16 U/L (5-34); Albumin 3.8 g/dL (3.4-4.8); Alkaline Phosphatase 85 U/L (40-110); BUN (Urea Nitrogen) 22 mg/dL (8.4-25.7); Bilirubin, Total 0.6 mg/dL (0.2-1.2); Calc. Creatinine Clearance 0 mL/min (70-130); Calcium 9.1 mg/dL (7.8-10.44); Carbon Dioxide 26 mmol/L (23-31); Chloride 103 mmol/L (98-107); Globulin 3.4 g/dL (2.4-3.5); Glucose 97 mg/dL (83-110); Potassium 3.8 mmol/L (3.5-5.1); Protein, Total 7.2 g/dL (5.8-8.1); Sodium 135 mmol/L (136-145)
[2020-09-07 11:05] LABS: Anion Gap 10 mmol/L (10-20)
[2020-09-07] MEDS ORDERED: Bisacodyl 10 MG SUPP PR PRN (12:18)
[2020-09-07] MEDS ORDERED: Zolpidem Tartrate 5 MG TAB PO PRN (12:18)
[2020-09-07] MEDS ORDERED: Calcium Carbonate 500 MG ChewTAB PO PRN (12:18)
[2020-09-07] MEDS ORDERED: Loperamide HCl 2 MG CAP PO PRN (12:18)
[2020-09-07] MEDS ORDERED: Guaifenesin DM 100-10/5 ML UDCUP PO PRN (12:18)
[2020-09-07] MEDS ORDERED: Senokot S 8.6-50 MG TAB PO PRN (12:18)
[2020-09-07] MEDS ORDERED: Acetaminophen 325 MG TAB ONE (12:30)
[2020-09-07 14:38] VITALS: BMI 23.0
[2020-09-07] MEDS: Ondansetron PF 4 MG/2 ML Vial IVP PRN (17:55)
[2020-09-07] MEDS: Carvedilol 6.25 MG TAB PO SCH (18:41)
[2020-09-07] MEDS: Acetaminophen 325 MG TAB PO PRN (20:08)
[2020-09-07] MEDS: Famotidine 20 MG TAB PO SCH (20:09)
[2020-09-07] MEDS: Meclizine HCl 12.5 MG TAB PO PRN (20:09)
[2020-09-07 21:22] LABS: Bacteria/HPF None Seen HPF (None Seen); Bilirubin Negative (Negative); Blood, Urine Negative (Negative); Clarity Clear (Clear); Glucose, Urine (Dipstick) Normal (Negative); Ketone, Urine Trace mg/dL (Negative); Leukocyte Negative Leu/uL (Negative); Nitrite Negative (Negative); Protein, Urine (Dipstick) 10 mg/dL (Neg-Trace); RBC/HPF 0-3 HPF (0-3); Specific Gravity, Urine 1.021 (1.002-1.036); Squamous Epithelial None Seen HPF (0-3); Urobilinogen Normal mg/dL (Less than 2); WBC/HPF 0-3 HPF (0-3); pH, Urine 7.5 (5.0-9.0)
[2020-09-07] MEDS: Promethazine HCl 12.5 MG in Sodium Chloride 0.9% 50 ML IVPB PRN (23:05)
[2020-09-08] MEDS: HYDROcodone/Acetaminophen 5/325 mg Tablet PO PRN ×3 (00:10→11:31)
[2020-09-08 01:51] LABS: SARS-CoV-2 PCR by NAA Not Detected (NotDetected)
[2020-09-08] MEDS: hydrALAZINE 20 MG/ML VIAL SLOW IVP PRN ×2 (03:48→11:40)
[2020-09-08 05:10] LABS: #Eosinphils 0.1 thou/uL (0.0-0.7); #Lymphocytes 1.8 thou/uL (1.20-3.40); #Monocytes 0.6 thou/uL (0.11-0.59); #Neutrophils 2.7 thou/uL (1.40-6.50); %Basophils 0.8 % (0.0-1.0); %Eosinophils 1.1 % (0.0-10.0); %Lymphocytes 34.4 % (21.0-51.0); %Monocytes 11.7 % (0.0-10.0); %Neutrophils 52.1 % (42.0-75.0); Hemoglobin 13.2 g/dL (14.0-18.0); Mean Corpuscular HGB CONC 33.7 g/dL (32.0-36.0); Mean Corpuscular Volume 86.1 fL (78.0-98.0); Mean Platelet Volume 7.9 fL (7.4-10.4); Platelet Count 214 thou/uL (130-400); RBC Distribution Width 12.7 % (11.5-14.5); Red Blood Cell (RBC) Count 4.53 mill/uL (4.70-6.10); White Blood Cell (WBC) Count 5.3 thou/uL (4.8-10.8)
[2020-09-08 05:42] LABS: Anion Gap 13 mmol/L (10-20); BUN (Urea Nitrogen) 20 mg/dL (8.4-25.7); Calc. Creatinine Clearance 46 mL/min (70-130); Calcium 9.2 mg/dL (7.8-10.44); Carbon Dioxide 26 mmol/L (23-31); Chloride 100 mmol/L (98-107); Glucose 135 mg/dL (83-110); Potassium 4.4 mmol/L (3.5-5.1); Sodium 135 mmol/L (136-145)
[2020-09-08] MEDS: Ondansetron PF 4 MG/2 ML Vial IVP PRN (08:00)
[2020-09-08] MEDS: Promethazine HCl 12.5 MG in Sodium Chloride 0.9% 50 ML IVPB PRN (10:24)
[2020-09-08] MEDS: Enoxaparin Sodium 40 MG/0.4 ML SYRINGE SC SCH (10:27)
[2020-09-08] MEDS: NIFEdipine XL 60 MG TAB PO SCH (10:30)
[2020-09-08] MEDS: Meclizine HCl 12.5 MG TAB PO PRN (10:30)
[2020-09-08] MEDS: Carvedilol 6.25 MG TAB PO SCH ×2 (10:30→17:12)
[2020-09-08] MEDS: Furosemide 40 MG TAB PO SCH (10:30)
[2020-09-08] MEDS: Famotidine 20 MG TAB PO SCH ×2 (10:30→20:35)
[2020-09-08] MEDS ORDERED: Meclizine HCl 25 MG TAB PO SCH (14:30)
[2020-09-08] MEDS: Ondansetron ODT 4 MG TAB PO PRN (14:48)
[2020-09-08] MEDS: Meclizine HCl 25 MG TAB PO SCH (20:35)
[2020-09-09] MEDS: Meclizine HCl 25 MG TAB PO SCH ×3 (05:41→21:10)
[2020-09-09] MEDS: NIFEdipine XL 60 MG TAB PO SCH (08:10)
[2020-09-09] MEDS: Famotidine 20 MG TAB PO SCH ×2 (08:10→21:09)
[2020-09-09] MEDS: Furosemide 40 MG TAB PO SCH (08:10)
[2020-09-09] MEDS: Carvedilol 6.25 MG TAB PO SCH (08:10)
[2020-09-09] MEDS: Enoxaparin Sodium 40 MG/0.4 ML SYRINGE SC SCH (08:11)
[2020-09-09] MEDS: Ondansetron ODT 4 MG TAB PO PRN (12:24)
[2020-09-10] MEDS: Meclizine HCl 25 MG TAB PO SCH ×3 (06:12→21:27)
[2020-09-10] MEDS: NIFEdipine XL 60 MG TAB PO SCH (07:48)
[2020-09-10] MEDS: Furosemide 40 MG TAB PO SCH (07:48)
[2020-09-10] MEDS: Enoxaparin Sodium 40 MG/0.4 ML SYRINGE SC SCH (07:48)
[2020-09-10] MEDS: Famotidine 20 MG TAB PO SCH ×2 (07:48→21:27)
[2020-09-10] MEDS: Carvedilol 3.125 MG TAB PO SCH ×2 (07:48→16:54)
[2020-09-10] MEDS: Acetaminophen 325 MG TAB PO PRN (16:57)
[2020-09-11] MEDS: Meclizine HCl 25 MG TAB PO SCH (06:11)
[2020-09-11 07:54] VITALS: BP 141/77; TEMP 99
[2020-09-11] MEDS: Famotidine 20 MG TAB PO SCH (08:32)
[2020-09-11] MEDS: NIFEdipine XL 60 MG TAB PO SCH (08:32)
[2020-09-11] MEDS: Carvedilol 3.125 MG TAB PO SCH (08:32)
[2020-09-11] MEDS: Enoxaparin Sodium 40 MG/0.4 ML SYRINGE SC SCH (08:32)
[2020-09-11] MEDS: Furosemide 40 MG TAB PO SCH (08:32)
== END 2020-09-11 13:10 | disposition home or self-care (01) | DRG 305 ==
LOC: ERS 09:39 → 2SW 11:47 → OBSVTOIN 09-09 10:55
PROVIDERS: ADMIT Internal Medicine; ATTEND Family Medicine
DX: I16.0 Hypertensive urgency (principal); I50.32 Chronic diastolic (congestive) heart failure; I11.0 Hypertensive heart disease with heart failure; R42 Dizziness and giddiness; Z20.822 Contact with and (suspected) exposure to COVID-19; Z85.038 Personal history of other malignant neoplasm of large intestine; Z86.718 Personal history of other venous thrombosis and embolism; Z95.0 Presence of cardiac pacemaker
CPT/HCPCS: 36415; 70450; 71045; 80048; 80053; 81001; 84484; 85025; 87635; 93005; 96372; 96374; 96375; 96376; G0378; J0360; J1650; J2405; J2550; Q0162; U0003; U0005

== ENCOUNTER 2020-10-11 11:23 | Outpatient (CLI) | payer MEDICARE, MEDICAID ==
[~2020-10-11 11:23] MED LIST: Magnevist 469MG/ML 20 ML VIAL ONE
== END 2020-10-11 11:24 | disposition home or self-care (01) ==
LOC: MRI 11:23 → EDSTATUS 12:00
PROVIDERS: ATTEND Internal Medicine Cardiovascular Disease
DX: R26.9 Unspecified abnormalities of gait and mobility (principal); I67.82 Cerebral ischemia
CPT/HCPCS: 70553; A9579

== ENCOUNTER 2021-02-28 14:15 | Outpatient (CLI) | payer MEDICARE, OTHER | END 2021-02-28 14:16 | disposition home or self-care (01) | LOC: BICRAD 14:15 | PROVIDERS: ATTEND Internal Medicine Cardiovascular Disease | DX: I10 Essential (primary) hypertension (principal) | CPT/HCPCS: 36415; 71046; 80048 ==

== ENCOUNTER 2021-12-09 11:45 | Observation (INO) | payer MEDICARE, MEDICAID ==
[2021-12-09 12:22] LABS: #Eosinphils 0.3 thou/uL (0.0-0.7)
[2021-12-09 12:29] LABS: #Lymphocytes 1.5 thou/uL (1.20-3.40); #Monocytes 0.5 thou/uL (0.11-0.59); #Neutrophils 2.6 thou/uL (1.40-6.50); %Basophils 0.9 % (0.0-1.0); %Eosinophils 6.7 % (0.0-10.0); %Lymphocytes 29.5 % (21.0-51.0); %Monocytes 10.8 % (0.0-10.0); Mean Corpuscular Hemoglobin 27.7 pg (27.0-31.0); Mean Corpuscular Volume 86.7 fL (78.0-98.0); Mean Platelet Volume 7.8 fL (7.4-10.4); Platelet Count 213 thou/uL (130-400); RBC Distribution Width 14.3 % (11.5-14.5); Red Blood Cell (RBC) Count 5.03 mill/uL (4.70-6.10)
[2021-12-09 12:43] LABS: ALT (SGPT) 8 U/L (8-55); AST (SGOT) 14 U/L (5-34); Albumin 3.8 g/dL (3.4-4.8); Alkaline Phosphatase 103 U/L (40-110); Anion Gap 13 mmol/L (10-20); BUN (Urea Nitrogen) 20 mg/dL (8.4-25.7); Bilirubin, Total 0.8 mg/dL (0.2-1.2); Calc. Creatinine Clearance 0 mL/min (70-130); Calcium 9.1 mg/dL (7.8-10.44); Carbon Dioxide 22 mmol/L (23-31); Chloride 106 mmol/L (98-107); Estimated GFR 47; Globulin 3.5 g/dL (2.4-3.5); Glucose 100 mg/dL (83-110); Lipase 18 U/L (8-78); Potassium 4.2 mmol/L (3.5-5.1); Protein, Total 7.3 g/dL (5.8-8.1); Sodium 137 mmol/L (136-145)
[2021-12-09] MEDS ORDERED: Aspirin Chewable 81 MG TAB ONE (12:54)
[2021-12-09] MEDS ORDERED: Acetaminophen 325 MG TAB PO PRN (15:20)
[2021-12-09] MEDS ORDERED: Calcium Carbonate 500 MG ChewTAB PO PRN (15:20)
[2021-12-09] MEDS ORDERED: Senokot S 8.6-50 MG TAB PO PRN (15:20)
[2021-12-09] MEDS ORDERED: Ondansetron ODT 4 MG TAB PO PRN (15:20)
[2021-12-09 15:42] LABS: Troponin I 0.035 ng/mL (< 0.028)
[2021-12-09 18:35] VITALS: BMI 23.4
[2021-12-09 18:37] LABS: Hemoglobin A1c 5.7 % (4.0-6.0)
[2021-12-09 18:40] LABS: Troponin I 0.024 ng/mL (< 0.028)
[2021-12-09] MEDS ORDERED: Atorvastatin Calcium 40 MG TAB PO SCH (21:00)
[2021-12-10 04:08] LABS: #Eosinphils 0.6 thou/uL (0.0-0.7); #Lymphocytes 2.2 thou/uL (1.20-3.40); #Monocytes 0.8 thou/uL (0.11-0.59); %Basophils 0.5 % (0.0-1.0); %Eosinophils 10.8 % (0.0-10.0); %Lymphocytes 38.9 % (21.0-51.0); %Monocytes 14.5 % (0.0-10.0); %Neutrophils 35.3 % (42.0-75.0); Hemoglobin 12.9 g/dL (14.0-18.0); Mean Corpuscular HGB CONC 32.5 g/dL (32.0-36.0); Mean Corpuscular Hemoglobin 28.6 pg (27.0-31.0); Mean Corpuscular Volume 88.2 fL (78.0-98.0); Mean Platelet Volume 7.7 fL (7.4-10.4); Platelet Count 202 thou/uL (130-400); RBC Distribution Width 14.4 % (11.5-14.5); White Blood Cell (WBC) Count 5.6 thou/uL (4.8-10.8)
[2021-12-10 04:26] LABS: Anion Gap 14 mmol/L (10-20); BUN (Urea Nitrogen) 25 mg/dL (8.4-25.7); Calc. Creatinine Clearance 34 mL/min (70-130); Calcium 8.8 mg/dL (7.8-10.44); Carbon Dioxide 24 mmol/L (23-31); Chloride 106 mmol/L (98-107); Estimated GFR 42; Glucose 108 mg/dL (83-110); Potassium 3.7 mmol/L (3.5-5.1); Sodium 140 mmol/L (136-145)
[2021-12-10] MEDS ORDERED: Furosemide 40 MG TAB PO SCH (07:30)
[2021-12-10 07:59] LABS: Cardiac Risk 4.6 (Less than 4.5); Cholesterol 170 mg/dl (< 200 Desired); HDL Cholesterol 37 mg/dL (>60 Neg Risk); LDL Cholesterol, Calculated 106 mg/dL; Triglycerides 133 mg/dL (Less than 150)
[2021-12-10] MEDS ORDERED: Carvedilol 3.125 MG TAB PO SCH (08:00)
[2021-12-10] MEDS ORDERED: NIFEdipine XL 60 MG TAB PO SCH (09:00)
[2021-12-10] MEDS ORDERED: Potassium Chloride 10 MEQ TAB PO SCH (09:00)
[2021-12-10] MEDS ORDERED: Aspirin 81 mg Enteric Coated Tablet PO SCH (09:00)
[2021-12-10] MEDS ORDERED: Enoxaparin Sodium 40 MG/0.4 ML SYRINGE SC SCH (09:00)
[2021-12-10 11:17] VITALS: BP 142/88
[2021-12-10 11:23] VITALS: TEMP 97.5
[2021-12-10] MEDS ORDERED: Regadenoson 0.4 MG/5 ML SYRINGE ONE (12:00)
== END 2021-12-10 13:45 | disposition home or self-care (01) ==
LOC: ERS 11:45 → ERHOLD 13:32 → 2NO 17:20
PROVIDERS: ADMIT Student in an Organized Health Care Education/Training Program; ATTEND Student in an Organized Health Care Education/Training Program
DX: I20.0 Unstable angina (principal); I13.0 Hypertensive heart and chronic kidney disease with heart failure and stage 1 through stage 4 chronic kidney disease, or unspecified chronic kidney disease; N18.9 Chronic kidney disease, unspecified; I50.30 Unspecified diastolic (congestive) heart failure; J44.9 Chronic obstructive pulmonary disease, unspecified; C61 Malignant neoplasm of prostate; R00.1 Bradycardia, unspecified; H40.9 Unspecified glaucoma; Z85.038 Personal history of other malignant neoplasm of large intestine; Z86.718 Personal history of other venous thrombosis and embolism; Z87.891 Personal history of nicotine dependence; Z79.82 Long term (current) use of aspirin; Z79.899 Other long term (current) drug therapy; Z95.0 Presence of cardiac pacemaker; Z20.822 Contact with and (suspected) exposure to COVID-19
CPT/HCPCS: 71045; 78452; 80048; 80061; 83036; 83690; 83880; 84484 ×2; 85025; 93005; 93017; 99285; A9500; U0003; U0005; 36415; 80053; 84443; 96372; G0378; J1650; J2785

== ENCOUNTER 2022-01-10 23:46 | Emergency (ER) | payer MEDICARE, MEDICAID ==
[2022-01-11 00:30] LABS: #Eosinphils 0.5 thou/uL (0.0-0.7); #Lymphocytes 2.5 thou/uL (1.20-3.40); #Monocytes 0.8 thou/uL (0.11-0.59); #Neutrophils 2.8 thou/uL (1.40-6.50); %Basophils 0.1 % (0.0-1.0); %Lymphocytes 37.6 % (21.0-51.0); %Monocytes 11.8 % (0.0-10.0); %Neutrophils 42.7 % (42.0-75.0); Hemoglobin 12.5 g/dL (14.0-18.0); Mean Corpuscular HGB CONC 32.4 g/dL (32.0-36.0); Mean Corpuscular Hemoglobin 27.7 pg (27.0-31.0); Mean Corpuscular Volume 85.6 fL (78.0-98.0); Mean Platelet Volume 7.7 fL (7.4-10.4); Platelet Count 207 thou/uL (130-400); RBC Distribution Width 14.4 % (11.5-14.5); Red Blood Cell (RBC) Count 4.51 mill/uL (4.70-6.10); White Blood Cell (WBC) Count 6.5 thou/uL (4.8-10.8)
[2022-01-11 00:52] LABS: ALT (SGPT) 11 U/L (8-55); AST (SGOT) 14 U/L (5-34); Albumin 3.7 g/dL (3.4-4.8); Alkaline Phosphatase 89 U/L (40-110); Anion Gap 14 mmol/L (10-20); BUN (Urea Nitrogen) 27 mg/dL (8.4-25.7); Bilirubin, Total 0.3 mg/dL (0.2-1.2); Calc. Creatinine Clearance 0 mL/min (70-130); Calcium 8.7 mg/dL (7.8-10.44); Carbon Dioxide 22 mmol/L (23-31); Chloride 108 mmol/L (98-107); Estimated GFR 41; Globulin 3.2 g/dL (2.4-3.5); Glucose 102 mg/dL (83-110); Potassium 3.9 mmol/L (3.5-5.1); Protein, Total 6.9 g/dL (5.8-8.1); Sodium 140 mmol/L (136-145)
[2022-01-11 02:21] LABS: Bacteria/HPF None Seen HPF (None Seen); Bilirubin Negative (Negative); Blood, Urine Negative (Negative); Clarity Clear (Clear); Glucose, Urine (Dipstick) Normal (Negative); Ketone, Urine Negative (Negative); Leukocyte 75 Leu/uL (Negative); Nitrite Negative (Negative); Protein, Urine (Dipstick) Negative (Neg-Trace); RBC/HPF 0-3 HPF (0-3); Specific Gravity, Urine 1.017 (1.002-1.036); Squamous Epithelial None Seen HPF (0-3); Urobilinogen Normal mg/dL (Less than 2); WBC/HPF 0-3 HPF (0-3)
== END 2022-01-11 03:05 | disposition home or self-care (01) ==
LOC: ERS 23:46
DX: M54.50 Low back pain, unspecified (principal); I10 Essential (primary) hypertension; Z85.038 Personal history of other malignant neoplasm of large intestine; Z79.82 Long term (current) use of aspirin; Z79.899 Other long term (current) drug therapy
CPT/HCPCS: 36415; 74176; 80053; 81003; 81015; 85025

== ENCOUNTER 2022-02-07 08:47 | Outpatient (CLI) | payer MEDICARE, OTHER | END 2022-02-07 08:48 | disposition home or self-care (01) | LOC: BICRAD 08:47 | PROVIDERS: ATTEND Nurse Practitioner Family | DX: R06.02 Shortness of breath (principal) | CPT/HCPCS: 36415; 71046; 80048 ==

== ENCOUNTER 2022-08-14 20:33 | Emergency (ER) | payer MEDICARE, MEDICAID ==
[2022-08-14] MEDS ORDERED: Ketorolac Tromethamine 30 MG/ML VIAL ONE (21:07)
== END 2022-08-14 21:36 | disposition home or self-care (01) ==
LOC: ERS 20:33
DX: M79.641 Pain in right hand (principal); I10 Essential (primary) hypertension
CPT/HCPCS: 96372; J1885

== ENCOUNTER 2022-10-01 06:25 | Emergency (ER) | payer MEDICARE, MEDICAID ==
[2022-10-01 07:51] LABS: #Eosinphils 0.6 thou/uL (0.0-0.7); #Lymphocytes 1.6 thou/uL (1.20-3.40); #Monocytes 0.7 thou/uL (0.11-0.59); #Neutrophils 1.7 thou/uL (1.40-6.50); %Basophils 0.8 % (0.0-1.0); %Eosinophils 13.6 % (0.0-10.0); %Lymphocytes 34.8 % (21.0-51.0); %Monocytes 14.4 % (0.0-10.0); %Neutrophils 36.3 % (42.0-75.0); Hemoglobin 13.9 g/dL (14.0-18.0); Mean Corpuscular HGB CONC 33.2 g/dL (32.0-36.0); Mean Corpuscular Hemoglobin 28.7 pg (27.0-31.0); Mean Corpuscular Volume 86.3 fl (78.0-98.0); Platelet Count 215 10x3/uL (130-400); RBC Distribution Width 14.7 % (11.5-14.5); Red Blood Cell (RBC) Count 4.85 mill/uL (4.70-6.10); White Blood Cell (WBC) Count 4.7 10x3/uL (4.8-10.8)
[2022-10-01 08:07] LABS: PTT 26.1 sec (22.9-36.1); Prothrombin Time 13.5 sec (12.0-14.7)
== END 2022-10-01 09:15 | disposition home or self-care (01) ==
LOC: ERS 06:25
DX: R04.0 Epistaxis (principal); I10 Essential (primary) hypertension; D72.819 Decreased white blood cell count, unspecified
CPT/HCPCS: 36415; 85025; 85610; 85730; 93005

== ENCOUNTER 2022-10-03 01:45 | Emergency (ER) | payer MEDICARE, MEDICAID | END 2022-10-03 04:08 | disposition home or self-care (01) | LOC: ERS 01:45 | DX: R04.0 Epistaxis (principal); I10 Essential (primary) hypertension; E78.5 Hyperlipidemia, unspecified; Z79.899 Other long term (current) drug therapy; Z79.82 Long term (current) use of aspirin | CPT/HCPCS: 99283 ==

== ENCOUNTER 2023-04-02 16:32 | Inpatient (IN) | payer MEDICARE, MEDICAID ==
[2023-04-02 17:40] LABS: #Eosinphils 0.1 thou/uL (0.0-0.7); #Monocytes 0.6 thou/uL (0.11-0.59); #Neutrophils 9.3 thou/uL (1.40-6.50); %Basophils 0.2 % (0.0-1.0); %Eosinophils 0.7 % (0.0-10.0); %Lymphocytes 7.9 % (21.0-51.0); %Monocytes 5.7 % (0.0-10.0); %Neutrophils 84.4 % (42.0-75.0); Hematocrit 32.7 % (42.0-52.0); Hemoglobin 10.7 g/dL (14.0-18.0); Mean Corpuscular HGB CONC 32.7 g/dL (32.0-36.0); Mean Corpuscular Hemoglobin 27.6 pg (27.0-31.0); Mean Corpuscular Volume 84.3 fl (78.0-98.0); Mean Platelet Volume 9.7 fL (7.4-10.4); Platelet Count 185 10x3/uL (130-400); RBC Distribution Width 17.5 % (11.5-14.5); Red Blood Cell (RBC) Count 3.88 mill/uL (4.70-6.10)
[2023-04-02 18:02] LABS: ALT (SGPT) 366 U/L (8-55); AST (SGOT) 264 U/L (5-34); Albumin 3.3 g/dL (3.4-4.8); Alkaline Phosphatase 165 U/L (40-110); Anion Gap 11 mmol/L (10-20); BUN (Urea Nitrogen) 23 mg/dL (8.4-25.7); Calc. Creatinine Clearance 0 mL/min (70-130); Calcium 8.2 mg/dL (7.8-10.44); Carbon Dioxide 22 mmol/L (23-31); Chloride 105 mmol/L (98-107); Estimated GFR 40; Globulin 2.5 g/dL (2.4-3.5); Glucose 161 mg/dL (83-110); Potassium 3.2 mmol/L (3.5-5.1); Protein, Total 5.8 g/dL (5.8-8.1); Sodium 135 mmol/L (136-145)
[2023-04-02 18:04] LABS: Troponin I Less than 0.010 ng/mL (< 0.028)
[2023-04-02] MEDS ORDERED: Cefepime 2 GM VIAL ONE (19:16)
[2023-04-02] MEDS ORDERED: Sodium Chloride 0.9% 100 ML ONE (19:16)
[2023-04-02] MEDS ORDERED: Vancomycin 1 GM/200 ML (FROZEN) BAG ONE (20:03)
[2023-04-02] MEDS ORDERED: Potassium Chloride 20 MEQ TAB PO SCH (21:45)
[2023-04-02] MEDS ORDERED: Albuterol 200 PUFF (6.7GM INHALER) INH PRN (22:03)
[2023-04-02 22:15] LABS: Lactic Acid 1.3 mmol/L (0.5-2.2)
[2023-04-02 22:19] LABS: Magnesium 1.9 mg/dL (1.6-2.6); Phosphorus 2.2 mg/dL (2.3-4.7)
[2023-04-02] MEDS: Ipratropium/Albuterol 3 ML NEB NEB SCH (23:53)
[2023-04-03 00:24] VITALS: BMI 25.5
[2023-04-03 01:10] LABS: INR-International Normal Ratio 1.3; PTT 35.1 sec (22.9-36.1); Prothrombin Time 16.8 sec (12.0-14.7)
[2023-04-03 04:25] LABS: #Eosinphils 0.1 thou/uL (0.0-0.7); #Monocytes 0.4 thou/uL (0.11-0.59); %Basophils 0.2 % (0.0-1.0); %Eosinophils 1.4 % (0.0-10.0); %Lymphocytes 12.6 % (21.0-51.0); %Monocytes 4.4 % (0.0-10.0); %Neutrophils 80.5 % (42.0-75.0); Hematocrit 31.5 % (42.0-52.0); Hemoglobin 10.2 g/dL (14.0-18.0); Mean Corpuscular HGB CONC 32.4 g/dL (32.0-36.0); Mean Corpuscular Hemoglobin 27.3 pg (27.0-31.0); Mean Corpuscular Volume 84.2 fl (78.0-98.0); Mean Platelet Volume 9.7 fL (7.4-10.4); Platelet Count 179 10x3/uL (130-400); RBC Distribution Width 17.7 % (11.5-14.5); Red Blood Cell (RBC) Count 3.74 mill/uL (4.70-6.10); White Blood Cell (WBC) Count 8.7 10x3/uL (4.8-10.8)
[2023-04-03 04:45] LABS: Lactic Acid 0.7 mmol/L (0.5-2.2)
[2023-04-03 04:49] LABS: ALT (SGPT) 293 U/L (8-55); AST (SGOT) 180 U/L (5-34); Albumin 3.2 g/dL (3.4-4.8); Alkaline Phosphatase 162 U/L (40-110); Anion Gap 9 mmol/L (10-20); BUN (Urea Nitrogen) 20 mg/dL (8.4-25.7); Bilirubin, Total 1.3 mg/dL (0.2-1.2); Calc. Creatinine Clearance 41 mL/min (70-130); Calcium 8.2 mg/dL (7.8-10.44); Carbon Dioxide 25 mmol/L (23-31); Chloride 109 mmol/L (98-107); Estimated GFR 50; Globulin 2.5 g/dL (2.4-3.5); Glucose 99 mg/dL (83-110); Potassium 3.8 mmol/L (3.5-5.1); Protein, Total 5.7 g/dL (5.8-8.1); Sodium 139 mmol/L (136-145)
[2023-04-03] MEDS: Ipratropium/Albuterol 3 ML NEB NEB SCH ×3 (07:22→18:50)
[2023-04-03] MEDS: Mometasone 100 MCG HFA INHALER (RT USE) INH SCH ×2 (07:27→18:50)
[2023-04-03] MEDS ORDERED: FLU VACC QS2023(65UP)/MF59C/PF 60 MCG/0.5 ML SYRINGE IM ONE (09:00)
[2023-04-03] MEDS: cefTRIAXone\\ROCEPHIN 1 GM in Sodium Chloride 0.9% 100 ML IVPB SCH (09:46)
[2023-04-03] MEDS ORDERED: Atorvastatin Calcium 40 MG TAB PO SCH (21:00)
[2023-04-03] MEDS ORDERED: Azithromycin 500 MG in Sodium Chloride 0.9% 250 ML 250 ML IVPB SCH (22:00)
[2023-04-04] MEDS ORDERED: Ibuprofen 200 MG TAB PO SCH (01:00)
[2023-04-04] MEDS: Ipratropium/Albuterol 3 ML NEB NEB SCH ×3 (01:02→12:22)
[2023-04-04 04:42] LABS: #Basophils 0.1 thou/uL (0.0-0.2); #Eosinphils 0.1 thou/uL (0.0-0.7); #Monocytes 1.1 thou/uL (0.11-0.59); #Neutrophils 3.7 thou/uL (1.40-6.50); %Basophils 0.9 % (0.0-1.0); %Eosinophils 1.5 % (0.0-10.0); %Lymphocytes 22.9 % (21.0-51.0); %Monocytes 16.3 % (0.0-10.0); %Neutrophils 56.6 % (42.0-75.0); Hemoglobin 11.1 g/dL (14.0-18.0); Mean Corpuscular HGB CONC 32.6 g/dL (32.0-36.0); Mean Corpuscular Hemoglobin 27.2 pg (27.0-31.0); Mean Corpuscular Volume 83.3 fl (78.0-98.0); Mean Platelet Volume 10.4 fL (7.4-10.4); Platelet Count 204 10x3/uL (130-400); RBC Distribution Width 17.6 % (11.5-14.5); Red Blood Cell (RBC) Count 4.08 mill/uL (4.70-6.10); White Blood Cell (WBC) Count 6.5 10x3/uL (4.8-10.8)
[2023-04-04 05:17] LABS: ALT (SGPT) 207 U/L (8-55); AST (SGOT) 96 U/L (5-34); Albumin 2.9 g/dL (3.4-4.8); Alkaline Phosphatase 223 U/L (40-110); Anion Gap 11 mmol/L (10-20); BUN (Urea Nitrogen) 15 mg/dL (8.4-25.7); Bilirubin, Total 0.8 mg/dL (0.2-1.2); Calc. Creatinine Clearance 46 mL/min (70-130); Calcium 8.2 mg/dL (7.8-10.44); Carbon Dioxide 21 mmol/L (23-31); Chloride 109 mmol/L (98-107); Estimated GFR 57; Glucose 97 mg/dL (83-110); Potassium 3.9 mmol/L (3.5-5.1); Protein, Total 5.9 g/dL (5.8-8.1); Sodium 137 mmol/L (136-145)
[2023-04-04] MEDS: Mometasone 100 MCG HFA INHALER (RT USE) INH SCH (07:02)
[2023-04-04] MEDS: cefTRIAXone\\ROCEPHIN 1 GM in Sodium Chloride 0.9% 100 ML IVPB SCH (08:33)
[2023-04-04 16:28] VITALS: BP 154/77; TEMP 98.9
[2023-04-04] MEDS ORDERED: Amoxicillin/Potassium Clav 875 MG TAB PO SCH (21:00)
[2023-04-05] MEDS ORDERED: Azithromycin 250 MG TAB PO SCH (09:00)
== END 2023-04-04 18:12 | disposition home or self-care (01) | DRG 194 ==
LOC: ERS 16:32 → 2NO 19:30
PROVIDERS: ADMIT Family Medicine; ATTEND Family Medicine
DX: J18.9 Pneumonia, unspecified organism (principal); E87.20 Acidosis, unspecified; K86.2 Cyst of pancreas; I95.9 Hypotension, unspecified; R74.01 Elevation of levels of liver transaminase levels; K76.89 Other specified diseases of liver; E87.6 Hypokalemia; E83.39 Other disorders of phosphorus metabolism; Z79.899 Other long term (current) drug therapy; Z79.82 Long term (current) use of aspirin; J44.9 Chronic obstructive pulmonary disease, unspecified; Z98.890 Other specified postprocedural states
CPT/HCPCS: 36415; 71045; 74177; 76705; 80053; 83605; 83735; 84100; 84145; 84484; 85025; 85610; 85730; 87040; 93005; 94640; 96365; 96375; J0456; J0692; J0696; J3370-JW; J3490; J7050; J7620

== ENCOUNTER 2024-02-24 09:26 | Emergency (ER) | payer MEDICARE, MEDICAID ==
[2024-02-24] MEDS ORDERED: Acetaminophen 500 MG TAB ONE (10:57)
== END 2024-02-24 11:35 | disposition home or self-care (01) ==
LOC: ERS 09:26
DX: I10 Essential (primary) hypertension (principal); R51.9 Headache, unspecified; R29.700 NIHSS score 0; E78.5 Hyperlipidemia, unspecified; J44.9 Chronic obstructive pulmonary disease, unspecified; Z86.711 Personal history of pulmonary embolism; Z85.038 Personal history of other malignant neoplasm of large intestine; Z79.82 Long term (current) use of aspirin; Z79.899 Other long term (current) drug therapy
CPT/HCPCS: 99283

== ENCOUNTER 2024-02-28 12:37 | Emergency (ER) | payer MEDICARE, MEDICAID | END 2024-02-28 13:26 | disposition home or self-care (01) | LOC: ERS 12:37 | DX: I10 Essential (primary) hypertension (principal); J44.9 Chronic obstructive pulmonary disease, unspecified; Z55.0 Illiteracy and low-level literacy; Z79.82 Long term (current) use of aspirin | CPT/HCPCS: 93005 ==

== ENCOUNTER 2024-03-18 10:14 | Emergency (ER) | payer MEDICARE, OTHER ==
[2024-03-18] MEDS ORDERED: predniSONE 20 MG TAB ONE (10:41)
[2024-03-18] MEDS ORDERED: Amoxicillin/Potassium Clav 875 MG TAB ONE (10:45)
[2024-03-18 11:29] LABS: #Basophils 0.06 10x3/uL (0.0-0.2); %Basophils 0.8 % (0.0-1.0); %Eosinophils 5.3 % (0.0-10.0); %Lymphocytes 25.4 % (21.0-51.0); %Monocytes 16.1 % (0.0-10.0); Hematocrit 43.1 % (42.0-52.0); Hemoglobin 13.8 g/dL (14.0-18.0); Mean Corpuscular Hemoglobin 27.7 pg (27.0-31.0); Mean Corpuscular Volume 86.4 fL (78.0-98.0); Mean Platelet Volume 9.4 fL (7.4-10.4); Platelet Count 206 10x3/uL (130-400); Red Blood Cell (RBC) Count 4.99 mill/uL (4.70-6.10)
[2024-03-18 11:46] LABS: ALT (SGPT) 9 U/L (8-55); AST (SGOT) 13 U/L (5-34); Albumin 3.4 g/dL (3.4-4.8); Alkaline Phosphatase 93 U/L (40-110); Anion Gap 13 mmol/L (10-20); BUN (Urea Nitrogen) 16 mg/dL (8.4-25.7); Bilirubin, Total 0.7 mg/dL (0.2-1.2); Calc. Creatinine Clearance 0 mL/min (70-130); Carbon Dioxide 24 mmol/L (23-31); Chloride 105 mmol/L (98-107); Estimated GFR 51; Glucose 90 mg/dL (83-110); Potassium 3.9 mmol/L (3.5-5.1); Protein, Total 7.4 g/dL (5.8-8.1); Sodium 138 mmol/L (136-145)
[2024-03-18 11:59] LABS: Troponin I 0.012 ng/mL (< 0.028)
== END 2024-03-18 12:08 | disposition home or self-care (01) ==
LOC: ERS 10:14
DX: J44.1 Chronic obstructive pulmonary disease with (acute) exacerbation (principal); I10 Essential (primary) hypertension
CPT/HCPCS: 36415; 71045; 80053; 84484; 85025; 87428; 93005; J7512

== ENCOUNTER 2024-04-29 08:01 | Emergency (ER) | payer MEDICARE, OTHER | END 2024-04-29 09:56 | disposition home or self-care (01) | LOC: ERS 08:01 | DX: R05.1 Acute cough (principal); J44.9 Chronic obstructive pulmonary disease, unspecified; I10 Essential (primary) hypertension; Z87.891 Personal history of nicotine dependence | CPT/HCPCS: 71046; 87400; 87426 ==

== ENCOUNTER 2025-01-29 08:09 | Emergency (ER) | payer OTHER ==
[2025-01-29] MEDS ORDERED: Acetaminophen 500 MG TAB ONE (09:05)
== END 2025-01-29 09:12 | disposition home or self-care (01) ==
LOC: ERS 08:09
DX: M79.642 Pain in left hand (principal); M25.532 Pain in left wrist; I10 Essential (primary) hypertension; J44.9 Chronic obstructive pulmonary disease, unspecified; V47.9XXA Unspecified car occupant injured in collision with fixed or stationary object in traffic accident, initial encounter
CPT/HCPCS: 99284